=== PATIENT | male | born 1990 | race Caucasian/White ===

== ENCOUNTER 2025-05-02 10:24 | Emergency (ER) | payer OTHER, SELFPAY ==
--- NOTE | 2025-05-02 10:34 | ED.GENMED ---
History of Present Illness
<Wade Cates MD, Resident - Last Filed: 05/02/25 12:46>
General
Chief Complaint: Abnormal Lab Value
Source: patient
Time Seen by Provider: 05/02/25 10:27
History of Present Illness
History of Present Illness:
Patient is a 34-year-old male with PMH of hepatitis C and OUD on Subutex who presents to the [facility] from correctional facility for an abnormal EKG and labs. Patient underwent a routine EKG related to his use of Subutex, which showed possible
peaked T waves, prompting the patient's presentation to the ED with concern for hyperkalemia. Patient is currently asymptomatic. No chest pain, palpitations, lightheadedness, headache, F/F/C, abdominal pain, numbness, or weakness.
Past History
<Wade Cates MD, Resident - Last Filed: 05/02/25 12:46>
Past History
ED Past Medical History: Other (Hepatitis A) and Other (Opioid use disorder)
Social History
Tobacco: Smoker
Drug: Former user
Living: [facility]dc
Family History
Family History: CAD
Review of Systems
<Wade Cates MD, Resident - Last Filed: 05/02/25 12:46>
Review of Systems
Constitutional: Denies fever, fatigue or chills
Respiratory: Denies cough or trouble breathing
Cardiac: Denies chest pain or palpitations
ABD/GI: Denies abdominal pain, nausea, vomiting or diarrhea
Neurological: Denies dizzy, headache, weakness or numbness
Phy Exam
<Wade Cates MD, Resident - Last Filed: 05/02/25 12:46>
Physical Exam
Physical Exam:
General: NAD. Conversant.
CV: RRR. S1, S2 noted. No M/R/G. Pulses 2+ UE bilaterally.
Pulm: CTAB. No wheezes or crackles. No cyanosis.
Course
<Wade Cates MD, Resident - Last Filed: 05/02/25 12:46>
Orders/Labs/Results
Orders:
Orders
05/02/25 10:43
EKG [Electrocardiogram (*1)] Urgent
Reason for Study: Chest Pain
EKG- Treatment ONCE
05/02/25 11:43
Complete Blood Count/With Diff Urgent
Comprehensive Metabolic Panel Urgent
Abnormal Lab Results
05/02/25
11:43
WBC 3.7 L 10^3/uL
(4.8-10.8)
RBC 4.24 L 10^6/uL
(4.70-6.10)
Hgb 12.8 L g/dL
(13.0-18.0)
Hct 38.3 L %
(39.0-52.0)
Monocytes % 9.9 H %
(1.7-9.3)
Creatinine 0.6 L mg/dL
(0.7-1.3)
AST 106 H U/L
(17-59)
ALT 151 H U/L
(0-50)
05/02/25 11:43
05/02/25 11:43
Vital Signs
Initial and Last Documented VS:
Initial Vital Signs
Temp Pulse Resp BP Pulse Ox
98.0 F 61 18 108/74 98
05/02/25 10:36 05/02/25 10:36 05/02/25 10:36 05/02/25 10:36 05/02/25 10:36
Last Documented Vital Signs
Temp Pulse Resp BP Pulse Ox
98.0 F 61 18 108/74 98
05/02/25 10:36 05/02/25 10:36 05/02/25 10:36 05/02/25 10:36 05/02/25 10:36
<Randa Carrera, DO - Last Filed: 05/02/25 12:42>
Orders/Labs/Results
Orders:
Orders
05/02/25 10:43
EKG [Electrocardiogram (*1)] Urgent
Reason for Study: Chest Pain
EKG- Treatment ONCE
05/02/25 11:43
Complete Blood Count/With Diff Urgent
Comprehensive Metabolic Panel Urgent
Abnormal Lab Results
05/02/25
11:43
WBC 3.7 L 10^3/uL
(4.8-10.8)
RBC 4.24 L 10^6/uL
(4.70-6.10)
Hgb 12.8 L g/dL
(13.0-18.0)
Hct 38.3 L %
(39.0-52.0)
Monocytes % 9.9 H %
(1.7-9.3)
Creatinine 0.6 L mg/dL
(0.7-1.3)
AST 106 H U/L
(17-59)
ALT 151 H U/L
(0-50)
05/02/25 11:43
05/02/25 11:43
Vital Signs
Initial and Last Documented VS:
Initial Vital Signs
Temp Pulse Resp BP Pulse Ox
98.0 F 61 18 108/74 98
05/02/25 10:36 05/02/25 10:36 05/02/25 10:36 05/02/25 10:36 05/02/25 10:36
Last Documented Vital Signs
Temp Pulse Resp BP Pulse Ox
98.0 F 61 18 108/74 98
05/02/25 10:36 05/02/25 10:36 05/02/25 10:36 05/02/25 10:36 05/02/25 10:36
<Wade Cates MD, Resident - Last Filed: 05/02/25 12:46>
MDM/Problems Addressed
Differential Diagnosis Includes:
Hyperkalemia 2/2:
Medications
Metabolic acidosis
Hypoaldosteronism
Adrenal insufficiency
Renal insufficiency
Rhabdomyolysis
Tumor lysis syndrome
Insulin deficiency
Early repolarization pattern
Myocardial infarction
Hypocalcemia
MDM/Problems Addressed:
Assessment: Patient is a 34-year-old male with PMH of hepatitis C and OUD on Subutex who presents to the [facility] ED from a correctional facility for possible peaked T waves seen on routine EKG. No current symptoms. AFVSS. Patient's only
medication is Subutex. Potassium 4.0. No emergent findings on EKG, CBC, CMP. Suspect early repolarization pattern.
Plan:
#Abnormal EKG
EKG
Labs: CBC, CMP
<Wade Cates MD, Resident - Last Filed: 05/02/25 12:46>
*Pulse Oximetry
Patient hypoxic: no
<Randa Carrera DO - Last Filed: 05/02/25 12:42>
*EKG
Interpreted by ED Provider?: Yes
EKG Intrepretation Date: 05/02/25
EKG Intrepretation Time: 11:35
Interpretation: normal
Comparison EKG: no comparison EKG present
Heart Rate: 61
Rate: normal
Rhythm: sinus
[place]: normal axis
Interval: normal interval
QRS Pattern: normal QRS
Ischemia: no ischemia
*Critical Care Note
Total Time (30-74mins, 75-104mins- exclusive of procedures): Not Applicable
ED Attending Note
<Wade Cates MD, Resident - Last Filed: 05/02/25 12:46>
-
Portions of this chart may have been created with voice recognition software.� Occasional wrong word or��sound alike� substitutions may have occurred due to the inherent limitations of voice recognition software.
<Randa Carrera DO - Last Filed: 05/02/25 12:42>
ED Attending Note
Patient seen and examined by attending physician: Yes
I performed the substantive portion of visit, reviewed & personally made and approve the management plan that is documented in note by myself or YUE.: Yes
I performed a history and physical exam of patient and discussed management with resident, I reviewed resident's note and agree with documented findings and plan of care.: Yes
ED Attending Note:
34-year-old male with prior history of opiate abuse presenting from correctional facility for concern of abnormal EKG. Patient is on Subutex and as part of medication screening, received an EKG with concern for peaked T waves. He was subsequent
sent to the ER for evaluation of his electrolytes. Patient currently without acute medical complaints. Denies any known cardiac history. Denies chest pain, difficulty breathing, weakness, lightheadedness. Vital signs are normal.
On exam, patient resting comfortably, no acute distress. Unremarkable cardiac and pulmonary exam. EKG obtained on arrival, appears more consistent with LVH, otherwise no significant peaking to the T waves, no acute ischemic abnormality. Will
screen with laboratory analysis with ultimate plan for disposition back to correctional facility
Discharge Plan
Departure
Patient Disposition: Longterm
Date of Disposition: 05/02/25
Time of Disposition: 12:43
Patient with high blood pressure during this ER visit?: No
Condition: Good
Covid-19: Not Applicable
Discharge Problem:
Abnormal finding on EKG
Referrals:
[facility] [Family Provider, General]
Activity Restrictions/Additional Instructions:
Patient is medically cleared to return to his facility
Return to ED if develop chest pain, shortness of breath, or any other worrisome symptoms
Interventions
Interventions:
*Risk Screen - Suicide Last Done: 05/02/25 11:54
*General Assessment Last Done: 05/02/25 10:32
*Neglect/Abuse Screening Last Done: 05/02/25 11:54
Discharge Date and Time
Print Language: BELIZEAN
[2025-05-02 10:36] VITALS: BP 108/74
[2025-05-02 11:50] LABS: Hematocrit 38.3 % (39.0-52.0); Hemoglobin 12.8 g/dL (13.0-18.0); Mean Corp Hgb Conc. 33.4 g/dL (33.0-37.0); Mean Corpuscular Volume 90.3 fL (80.0-94.0); Nucleated Red Blood Cells % 0 % (-); Platelet Count 153 10^3/uL (130-400); Red Cell Dist. Width 14.2 % (11.5-14.5)
[2025-05-02 12:39] LABS: ALT (SGPT) 151 U/L (0-50); AST (SGOT) 106 U/L (17-59); Albumin 4.0 g/dl (3.5-5.0); Alkaline Phosphatase 71 U/L (38-126); Blood Urea Nitrogen 11 mg/dl (9-20); Calcium 8.9 mg/dl (8.4-10.2); Carbon Dioxide 26 mmol/L (22-30); Chloride 104 mmol/L (98-107); Glucose 94 mg/dl (70-99); Potassium 4.0 mmol/L (3.5-5.1); Sodium 138 mmol/L (135-145); Total Protein 7.8 g/dl (6.3-8.2); eGFR > 60.00
[2025-05-02 12:50] VITALS: BP 100/57
== END 2025-05-02 12:53 ==
LOC: EMR 10:24
PROVIDERS: EMERGENCY PHYSICIAN Student in an Organized Health Care Education/Training Program
DX: R94.31 Abnormal electrocardiogram [ECG] [EKG] (principal); F17.200 Nicotine dependence, unspecified, uncomplicated; Z82.49 Family history of ischemic heart disease and other diseases of the circulatory system; Z86.19 Personal history of other infectious and parasitic diseases
CPT/HCPCS: 99285; 80053; 85025; 93005